=== PATIENT | female | born 1970 | race Hispanic/Latino ===

== ENCOUNTER 2018-02-21 12:31 | Emergency (ER) | payer SELFPAY ==
--- NOTE | 2018-02-21 13:48 | RAD ---
3 VIEWS RIGHT FOOT: Date: 02/21/18 COMPARISON: None. HISTORY: Injury, trauma, pain. FINDINGS: There is a subtle oblique lucency seen on the frontal radiograph overlying the base of the first meta tarsal. Etiology is uncertain. This could potentially represent a nondisplaced fracture. There is mil d degenerative change at the first metatarsophalangeal joint. No displaced fracture or evidence of di slocation is seen. IMPRESSION: Subtle lucency is seen on the frontal view at the base of the first metatarsal. This could represent a fracture in the proper clinical setting. Correlation for point tenderness in this region is require d. POS: [facility]
== END 2018-02-21 13:17 | disposition home or self-care (01) ==
LOC: ERS 12:31
DX: S92.314A Nondisplaced fracture of first metatarsal bone, right foot, initial encounter for closed fracture (principal); N76.0 Acute vaginitis; F17.210 Nicotine dependence, cigarettes, uncomplicated; X58.XXXA Exposure to other specified factors, initial encounter

== ENCOUNTER 2018-04-28 09:00 | Emergency (ER) | payer SELFPAY | END 2018-04-28 10:45 | disposition home or self-care (01) | LOC: ERS 09:00 | DX: N89.8 Other specified noninflammatory disorders of vagina (principal); M25.562 Pain in left knee; F41.9 Anxiety disorder, unspecified; F17.210 Nicotine dependence, cigarettes, uncomplicated | CPT/HCPCS: 99283 ==

== ENCOUNTER 2019-01-26 12:16 | Emergency (ER) | payer SELFPAY ==
[2019-01-26 13:30] LABS: Bilirubin Negative (Negative); Blood, Urine Negative (Negative); Clarity Clear (Clear); Glucose, Urine (Dipstick) Normal (Negative); Leukocyte Negative Leu/uL (Negative); Nitrite Negative (Negative); Protein, Urine (Dipstick) Negative (Neg-Trace); Urobilinogen Normal mg/dL (Less than 2)
[2019-01-26] MEDS ORDERED: cefTRIAXone\\ROCEPHIN 250 MG VIAL ONE (14:08)
[2019-01-26] MEDS ORDERED: Azithromycin 250 MG TAB ONE (14:10)
[2019-01-26] MEDS ORDERED: Lidocaine 1% PF 5 ML VIAL ONE (14:11)
[2019-01-28 01:07] LABS: Chlamydia by PCR Not Detected (NotDetected); GC by PCR Not Detected (NotDetected)
== END 2019-01-26 14:45 | disposition home or self-care (01) ==
LOC: ERS 12:16
DX: N89.8 Other specified noninflammatory disorders of vagina (principal)
CPT/HCPCS: 81003; 87480; 87491; 87510; 87591; 87660; 96372; 99283; J0696; J2001

== ENCOUNTER 2021-03-26 10:17 | Emergency (ER) | payer SELFPAY | END 2021-03-26 11:03 | disposition home or self-care (01) | LOC: ERS 10:17 | DX: N89.8 Other specified noninflammatory disorders of vagina (principal); Z85.42 Personal history of malignant neoplasm of other parts of uterus; Z87.891 Personal history of nicotine dependence; Z79.899 Other long term (current) drug therapy | CPT/HCPCS: 99283 ==

== ENCOUNTER 2022-04-22 13:58 | Emergency (ER) | payer SELFPAY | END 2022-04-22 15:53 | disposition left against medical advice (07) | LOC: ERS 13:58 | DX: Z53.21 Procedure and treatment not carried out due to patient leaving prior to being seen by health care provider (principal) ==

== ENCOUNTER 2022-05-18 22:33 | Emergency (ER) | payer SELFPAY | END 2022-05-18 23:56 | disposition home or self-care (01) | LOC: ERS 22:33 | DX: M25.561 Pain in right knee (principal); W22.8XXA Striking against or struck by other objects, initial encounter ==

== ENCOUNTER 2022-09-18 12:08 | Emergency (ER) | payer SELFPAY ==
[2022-09-18] MEDS ORDERED: cefTRIAXone (ROCEPHIN) 500 MG VIAL ONE (12:59)
[2022-09-18] MEDS ORDERED: Ketorolac Tromethamine 30 MG/ML VIAL ONE (12:59)
[2022-09-18] MEDS ORDERED: Boostrix 0.5 ML (Tdap) VIAL (>/=7 yrs of age) ONE (12:59)
[2022-09-18] MEDS ORDERED: Cyclobenzaprine 10 MG TAB ONE (12:59)
[2022-09-18] MEDS ORDERED: Lidocaine 1% MPF 2 ML VIAL ONE (12:59)
[2022-09-18 13:27] LABS: Bilirubin Negative (Negative); Blood, Urine Negative (Negative); Clarity Clear (Clear); Glucose, Urine (Dipstick) Normal (Negative); Ketone, Urine Negative (Negative); Leukocyte Negative Leu/uL (Negative); Nitrite Negative (Negative); Protein, Urine (Dipstick) Negative (Neg-Trace); Specific Gravity, Urine 1.004 (1.002-1.036); Urobilinogen Normal mg/dL (Less than 2)
[2022-09-19 10:56] LABS: GC N.gonorrhoeae PCR,UrineVOID Not Detected (NotDetected)
== END 2022-09-18 14:27 | disposition home or self-care (01) ==
LOC: ERS 12:08
DX: S81.012A Laceration without foreign body, left knee, initial encounter (principal); T74.21XA Adult sexual abuse, confirmed, initial encounter; Z23 Encounter for immunization
CPT/HCPCS: 12002; 81003; 87480; 87510; 87591; 87660; 90471; 90715; 96372; J0696; J1885

== ENCOUNTER 2022-12-07 05:08 | Emergency (ER) | payer SELFPAY ==
[2022-12-07] MEDS ORDERED: Boostrix 0.5 ML (Tdap) VIAL (>/=7 yrs of age) ONE (05:43)
[2022-12-07] MEDS ORDERED: Acetaminophen 500 MG TAB ONE (05:43)
== END 2022-12-07 07:09 | disposition home or self-care (01) ==
LOC: ERS 05:08
DX: S93.401A Sprain of unspecified ligament of right ankle, initial encounter (principal); S80.212A Abrasion, left knee, initial encounter; S90.512A Abrasion, left ankle, initial encounter; F17.210 Nicotine dependence, cigarettes, uncomplicated; X50.0XXA Overexertion from strenuous movement or load, initial encounter
CPT/HCPCS: 90715

== ENCOUNTER 2024-01-18 09:03 | Emergency (ER) | payer SELFPAY ==
[2024-01-18] MEDS ORDERED: Ibuprofen 200 MG TAB ONE (10:36)
== END 2024-01-18 10:56 | disposition home or self-care (01) ==
LOC: ERS 09:03
DX: S96.911A Strain of unspecified muscle and tendon at ankle and foot level, right foot, initial encounter (principal); N76.0 Acute vaginitis; F17.210 Nicotine dependence, cigarettes, uncomplicated; W22.8XXA Striking against or struck by other objects, initial encounter; Y93.01 Activity, walking, marching and hiking
CPT/HCPCS: 99283

== ENCOUNTER 2024-09-07 13:31 | Emergency (ER) | payer SELFPAY ==
[2024-09-07 15:25] LABS: Bacteria/HPF None Seen HPF (None Seen); Bilirubin Negative (Negative); Blood, Urine Negative (Negative); CAUTI Indications for Culture Dysuria,urgency,freq; Clarity Clear (Clear); Glucose, Urine (Dipstick) Normal (Negative); Ketone, Urine Negative (Negative); Leukocyte 250 Leu/uL (Negative); Nitrite Negative (Negative); Protein, Urine (Dipstick) Negative (Neg-Trace); RBC/HPF 0-3 HPF (0-3); Specific Gravity, Urine 1.011 (1.002-1.036); Urobilinogen Normal mg/dL (Less than 2); pH, Urine 6.5 (5.0-9.0)
[2024-09-07 15:26] LABS: Pregnancy Test - Urine (BHCG) Negative (Negative); Pregu Control Background? CLEAR/WHITE (CLR/WHITE); Pregu Control Bar Appear? YES (CONTROL BAR)
[2024-09-07 15:27] LABS: Urine Culture Reflex No No
== END 2024-09-07 15:48 | disposition home or self-care (01) ==
LOC: ERS 13:31
DX: N76.0 Acute vaginitis (principal)
CPT/HCPCS: 81001; 81025; 99283